=== PATIENT | male | born 1975 | race Hispanic/Latino ===

== ENCOUNTER → 2022-02-22 | Outpatient (CLI) | payer MEDICAID | END | disposition home or self-care (01) | LOC: SLP 20:48 | PROVIDERS: ATTEND Family Medicine | DX: G47.33 Obstructive sleep apnea (adult) (pediatric) (principal) | CPT/HCPCS: 95811 ==

== ENCOUNTER 2024-10-15 08:30 | Emergency (ER) | payer SELFPAY ==
[~2024-10-15] VITALS: Ht 185.4 cm; Wt 108.9 kg
--- NOTE | 2024-10-15 08:52 | ERN ---
General Chief Complaint: Congestion Stated Complaint: CONGESTION Time Seen by MD: 08:38 Source: patient History of Present Illness Initial Comments PATIENT IS A 49-YEAR-OLD MALE COMING IN TO BE EVALUATED FOR DYSPHAGIA. PER PATIENT HE WAS VAPING STARTED HAVING SOME DISCOMFORT AND DECIDED TO COME IN FOR FURTHER EVALUATION. HE STATES HE HAS A HISTORY OF ANXIETY AND FELT VERY ANXIOUS. NO FEVER OR CHILLS NO NAUSEA NO VOMITING. Allergies: Coded Allergies: Penicillins (Unverified Allergy, Unknown, 10/15/24) Past Medical History Past Medical History: Other Past Surgical History: Other Surgical History Other: HEARNIA REPAIR X4 YEARS, CORRECTIVE SINUS SX X4 YEARS AGO ROS Dictation CONSTITUTIONAL: NO CHILLS, NO FEVER, NO WEAKNESS, NO DIAPHORESIS, NO MALAISE. HEAD/FACE: NO SIGNS OF TRAUMA. EENT: NO EYE PAIN, NO BLURRED VISION, NO TEARING, NO DOUBLE VISION, NO EAR PAIN, NO EAR DISCHARGE, NO NOSE PAIN, NO NASAL CONGESTION, NO THROAT PAIN,THROAT SWELLING, NO MOUTH PAIN. RESPIRATORY: NO COUGH, NO ORTHOPNEA, NO SOB, NO STRIDOR, NO WHEEZING. CARDIOVASCULAR: NO CHEST PAIN, NO EDEMA, NO PALPITATIONS, NO SYNCOPE. GASTROINTESTINAL/ABDOMINAL: NO ABDOMINAL PAIN, NO CONSTIPATION, NO DIARRHEA, NO NAUSEA, NO VOMITING. GENITOURINARY: NO ABNORMAL DISCHARGE, NO DYSURIA, NO FREQUENT URINATION, NO HEMATURIA. NO COMPLAINTS OF PAIN IN THE GENITALS. MUSCULOSKELETAL: NO BACK PAIN, NO GOUT, NO JOINT PAIN, NO JOINT SWELLING, NO MUSCLE PAIN, NO MUSCLE STIFFNESS, NO NECK PAIN. INTEGUMENTARY: NO CHANGE IN COLOR, NO CHANGE IN HAIR/NAILS, NO DRYNESS, NO LESION, NO LUMPS, NO RASH. NEUROLOGICAL/PSYCH: NO ANXIETY, NOT DEPRESSED, NO EMOTIONAL PROBLEM, NO HEADACHE, NO NUMBNESS, NO PRE-EXISTING DEFICIT, NO HISTORY OF SEIZURES, NO TREMORS, NO WEAKNESS. HEMATOLOGIC/LYMPHATIC: NOT ANEMIC, NO HISTORY OF BLOOD CLOTS, NO APPARENT BLEEDING, NO BRUISING, GLANDS NOT SWOLLEN. ALL SYSTEMS NEGATIVE, EXCEPT NOTED. Physical Exam Physical Exam Dictation VITAL SIGNS: REVIEWED. GENERAL APPEARANCE: ALERT, ORIENTED X3, NO ACUTE DISTRESS, OBESE. HEAD AND FACE: NON-TRAUMATIC. EYES: PERRL, PINK CONJUNCTIVAS, EYELID NO TRAUMA, ANTERIOR CHAMBER CLEAR. EARS: PINNAS INTACT AND NO SIGNS OF TRAUMA OR ERYTHEMA. EAR CANALS CLEAR AND NO DISCHARGE. TMS NO ERYTHEMA. NOSE: NO DISCHARGE, NO BLEEDING. OROPHARYNX: MOUTH NORMAL, TEETH NO CARIES, TONGUE PINK. PHARYNX CLEAR, NO ERYTHEMA. TONSILS NO EXUDATES, NO ABSCESSES NOTED. MUCOUS MEMBRANE MOIST. NECK: SUPPLE, NON-TENDER, NO THYROMEGALY, NO MASSES, NO JVD, NO BRUITS. BREAST: DEFERRED. CHEST: NO TENDERNESS, NO CREPITUS, NO PARADOXICAL MOVEMENT, NO RETRACTIONS. LUNGS: CLEAR, WELL-VENTILATED, SYMMETRIC, NO RALES, NO WHEEZING, NO RHONCHI, NO STRIDOR, GOOD BREATH SOUNDS BILATERALLY. HEART: REGULAR RATE, REGULAR RHYTHM, NO MURMUR, NO GALLOPS. VASCULAR: NO PERIPHERAL EDEMA. ABDOMEN: SOFT, POSITIVE BOWEL SOUNDS, NONDISTENDED, NO GUARDING, NONTENDER, NO REBOUND, NO MASSES NO HEPATOMEGALY, NO SPLENOMEGALY, NO RAMSAY'S SIGN, NO HERNIAS. RECTAL: DEFERRED. GENITAL: DEFERRED. NEUROLOGICAL: NORMAL SPEECH, GROSS MOTOR FUNCTION INTACT, GROSS SENSORY FUNCTION INTACT. MUSCULOSKELETAL: NECK NONTENDER, FULL RANGE OF MOTION, BACK NONTENDER, FULL RANGE OF MOTION. EXTREMITIES: NONTENDER, FULL RANGE OF MOTION. SKIN: COLOR PINK, DRY, NO TURGOR, NO RASH, NO LACERATIONS, NO ABRASIONS, NO CONTUSIONS. LYMPHATICS: DEFERRED. Results Laboratory and Microbiology Labs Reviewed?: Yes MDM MDM: DIFFERENTIAL DIAGNOSIS: DYSPHAGIA, ANXIETY, SINUSITIS, POSTNASAL DRIP, PATIENT IS A 49-YEAR-OLD GENTLEMAN COMING IN TO BE EVALUATED FOR DYSPHAGIA SYMPTOMS. PATIENT STATES THAT HE HAS BEEN VAPING LAST NIGHT GOT VERY ANXIOUS DECIDED TO COME IN FOR FURTHER EVALUATION ON PHYSICAL EXAM OROPHARYNGEAL ERYTHEMA BUT PATENCY IS NOTED I ADVISED PATIENT ON FINDINGS AND ALSO ADVISED HIM I DID GET AN X-RAY OF HIS NECK TO SHOW HIM THE PATENCY. WHILE ORDERING THE X- RAY PATIENT STATES HE CAN DO WITHOUT THE X-RAY LONG THROAT IS PATENT. HE FEELS MORE RELAXED AND THE DYSPHAGIA HAS SUBSIDED. PATIENT WILL BE DISCHARGED IN STABLE CONDITION, P.O. CHALLENGE PASSED. ED Course Orders Procedure Category Date Status Time Hydroxyzine Hcl PHA 10/15/24 Complete 10mg/5ml Syrup 08:46 Current Medications Medications (Trade) Dose Ordered Sig/Juaquin Route PRN Reason Start Time Stop Time Status Last Admin Dose Admin Hydroxyzine HCl (hydrOXYzine HCL 10MG/5ML SYRUP) 5 mg ONCE STAT PO 10/15/24 08:46 10/15/24 08:48 DC 10/15/24 09:15 Vital Signs Date Time Temp Pulse Resp B/P (MAP) Pulse Ox O2 Delivery O2 Flow Rate FiO2 10/15/24 08:31 98.8 99 16 131/95 98 Room Air 0 10/15/24 08:31 98.8 99 16 131/95 98 Room Air* 0 21 DX & DISP Disposition: Discharge Departure Impression: Primary Impression: Anxiety reaction Condition: Stable Scripts Hydroxyzine HCl (Hydroxyzine HCl) 10 Mg Tablet 1 TAB PO BID for anxiety for 7 Days, #14 TAB 0 Refills Prov: KANE SANZ MD 10/15/24 Additional Instructions: FOLLOW-UP WITH PRIMARY CARE PROVIDER IN 1 TO 2 DAYS. TAKE MEDICATIONS DIRECTED HERE IN THE EMERGENCY ROOM. OKAY TO CONTINUE HOME MEDICATIONS UNLESS OTHERWISE DISCUSSED DURING YOUR VISIT IN THE EMERGENCY ROOM TODAY. RETURN TO YOUR NEAREST EMERGENCY ROOM IF SYMPTOMS WORSEN OR IF THERE IS NO IMPROVEMENT. CALL 911 IF YOU NEED IMMEDIATE ASSISTANCE. TAKE TYLENOL [id number] NEEDED AND IF NO CONTRAINDICATIONS ARE PRESENT. INCREASE ORAL HYDRATION. A WOUND CULTURE OR URINE CULTURE WAS ORDERED HERE IN THE EMERGENCY ROOM DEPARTMENT PLEASE FOLLOW-UP WITH PRIMARY CARE PROVIDER AND ADVISE THEM TO GET REPEAT PORTS FROM OUR FACILITY. IF YOU HAD ANY CLIFF WRAP/SPLINTS THAT WERE APPLIED HERE, PLEASE DO NOT REMOVE THEM UNTIL YOU SEE YOUR PRIMARY CARE OR SPECIALTY. REFERRALS: Referrals: LAURA FULLER MD (PCP) Time of Disposition: 08:52 KANE SANZ MD Oct 15, 2024 08:52
[2024-10-15] MEDS ORDERED: HYDR-3830 PO (09:38)
[2024-10-15 09:41] VITALS: BP 124/88; PULSE 80; RESP 16; TEMP 98.8; O2SAT 98
== END 2024-10-15 09:46 | disposition home or self-care (01) ==
LOC: EDH 08:30
DX: F41.1 Generalized anxiety disorder (principal); Z88.0 Allergy status to penicillin
CPT/HCPCS: 99283